=== PATIENT | female | born 1955 | race Two or more races ===

== ENCOUNTER 2018-04-17 12:35 | Emergency (ER) | payer OTHER ==
[~2018-04-17] VITALS: Ht 172.7 cm; Wt 83.9 kg
[2018-04-17 12:48] VITALS: BP 150/84
[2018-04-17] MEDS ORDERED: SODIUM CHLORIDE IR ONE (12:50)
[2018-04-17] MEDS ORDERED: BOOSTRIX TDAP IM ONE ×2 (12:50→13:00)
--- NOTE | 2018-04-17 12:51 | NUR ---
ARRIVAL PATIENT ARRIVED TO ED6 VIA W/C WITH FRIEND, C/O OF HEAD INJURY FROM A FALL TODAY, PATIENT STATES SHE WAS STEPPING OFF OF A CURB WITH SHE FELL HITTING HER HEAD, ON ARRIVAL EMESIS NOTED, PATIENT STATE SHE DIZZINESS, DENIES LOC, CAME TO ED FOR FURTHER EVAL.
--- NOTE | 2018-04-17 12:51 | ER.PDOC ---
General Chief Complaint: Trauma Stated Complaint: HEAD INJURY Time seen by MD: 12:49 Source: patient Exam Limitations: no limitations History of Present Illness Initial Comments Fell, hit the back of her head and vomited. Occurred: just prior to arrival Severity: moderate Injuries/Pain Location: head Context: Tripped Loss of Consciousness: No Loss of Consciousness Associated Symptoms: nausea/vomiting Allergies: Coded Allergies: No Known Allergies (Unverified , 04/17/18) MEDS No Active Prescriptions or Reported Meds Past Medical History Medical History: thyroid disease Surgical History: hysterectomy Social History Smoking: non-smoker Alcohol Use: none Drug Use: none Review of Systems Constitutional: no symptoms reported Eyes: no symptoms reported Ears, Nose, Mouth, Throat: no symptoms reported Cardiovascular: no symptoms reported Gastrointestinal: no symptoms reported All Other Systems: Reviewed and Negative Physical Exam General Appearance: No Apparent Distress, WD/WN Head: Lacerations (small, back of head), Swelling (abrasion back of head.) Ears, Nose, Mouth, Throat: Hearing Grossly Normal, No Evidence of ENT Injury, No Dental Injury Neck: Non-Tender, Normal Alignment, Nexus criteria neg, Normal Inspection Cardiovascular/Respiratory: Regular Rate, Rhythm, No M/R/G, Normal Peripheral Pulses, No JVD, Normal Breath Sounds, No Respiratory Distress Gastrointestinal: Normal Bowel Sounds, No Organomegaly, No Pulsatile Mass, Non Tender, Soft Back: Normal Inspection, No CVA Tenderness, No Vertebral Tenderness Extremities: No Evidence of Injury, Normal Range of Motion, Non-Tender, No Pedal Edema 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 No evidence of intracranial hemorrhage or fracture with small left posterior parietal scalp hematoma. 2. Extra-axial 4.8 cm mass that has some mass effect upon the right frontal lobe. This probably represents a noncalcified meningioma. Recommend follow-up with nonemergent outpatient MRI clinically appropriate and the patient does not have any acute neurologic symptoms. Patient has no neurological deficits. Patient told of the results and will follow up with her PCP in the town she [place]. She is visiting. She is given a CD and a copy of her result. Departure Time of Disposition: 14:02 Disposition: 01 HOME, SELF-CARE Impression: Primary Impression: Concussion Qualified Codes: S06.0X0A - Concussion without loss of consciousness, initial encounter Additional Impressions: Contusion of head Qualified Codes: S00.93XA - Contusion of unspecified part of head, initial encounter Abrasion NEC Condition: Stable Referrals: PCP,UNKNOWN (PCP) PRIMARY CARE PROVIDER Additional Instructions: Zofran Apply Neosporin to abrasion daily F/U with your PCP this week for non-emergent MRI as discussed with you. Scripts No Active Prescriptions or Reported Meds Duration or Time Spent with Pa: 60 mins MELANIE CERVANTES MD Apr 17, 2018 12:51
--- NOTE | 2018-04-17 12:56 | NUR ---
CT PT TAKEN TO CT
--- NOTE | 2018-04-17 13:12 | NUR ---
CT PT BACK FROM CT
[2018-04-17] MEDS ORDERED: ZOFRAN ODT ONE (13:18)
[2018-04-17] MEDS ORDERED: ZOFRAN ODT SL STA (13:19)
[2018-04-17 13:23] VITALS: BP 150/84
--- NOTE | 2018-04-17 13:24 | NUR ---
[facility] DR CERVANTES ON PHONE WITH [facility]
--- NOTE | 2018-04-17 13:31 | DIREP ---
PROCEDURE:CT HEAD WITHOUT CONTRAST TECHNIQUE:Axial cuts were obtained through the head, without intravenous contrast material. The images were viewed at brain and bone settings. COMPARISON:None. INDICATIONS:Pain and dizziness from falling and hitting head FINDINGS: VENTRICLES:Normal. CEREBRUM:There is an oval isodense extra-axial mass that abuts the right frontal lobe and measures 3.8 x 1.9 cm in the axial plane. No evidence of hemorrhage. There is no midline shift. There is mass effect upon the right frontal lobe. CEREBELLUM:Normal. BRAINSTEM:Normal. SKULL:No fracture. There is soft tissue swelling seen involving the left posterior parietal scalp with associated small scalp hematoma. SINUSES:Normal. OTHER:Negative. CONCLUSION: 1. No evidence of intracranial hemorrhage or fracture with small left posterior parietal scalp hematoma. 2. Extra-axial 4.8 cm mass that has some mass effect upon the right frontal lobe. This probably represents a noncalcified meningioma. Recommend follow-up with nonemergent outpatient MRI clinically appropriate and the patient does not have any acute neurologic symptoms. 3. This report was called by telephone at 1:28 pm on April 17, 2018 to Patric Rocha Mba . Dictated by: Kt Sarabia MD on 04/17/2018 at 01:20 PM
--- NOTE | 2018-04-17 13:41 | NUR ---
WOUND BACK OF THE HEAD CLEAN WITH APPROX 500C OF STERILE WATER, SMALL ABRASION NOTED. PATIENT TOLERATED WELL.
[2018-04-17 14:19] VITALS: BP 140/88
[2018-04-17 14:20] VITALS: BP_SYST 140
== END 2018-04-17 14:10 | disposition home or self-care (01) ==
LOC: ER 12:35
DX: S06.0X0A Concussion without loss of consciousness, initial encounter (principal); S01.01XA Laceration without foreign body of scalp, initial encounter; E07.9 Disorder of thyroid, unspecified; Z90.710 Acquired absence of both cervix and uterus; W01.0XXA Fall on same level from slipping, tripping and stumbling without subsequent striking against object, initial encounter; Y93.89 Activity, other specified; Y92.89 Other specified places as the place of occurrence of the external cause; Y99.8 Other external cause status
CPT/HCPCS: 70450; 90471; 90715; 99285; J7030; Q0162